=== PATIENT | female | born 1955 | race Caucasian/White ===

== ENCOUNTER → 2018-11-11 | Outpatient (CLI) | payer OTHER ==
[~2018-11-11] MED LIST: GLIMEPIRIDE2 MG PO; LEXAPRO10 MG PO; LOSARTAN POTASS25 MG PO; NEXIUM40 MG PO; OXYBUTYNIN CHLOR5 MG PO; SINGULAIR10 MG PO; SPIRONOLACTONE25 MG PO; VICTOZA 2-0.6 MG/0.1 SC; VYTORIN 10-401 EACH PO; WARFARIN SODIUM4 MG PO; Z.0.ECOTRIN325 MG PO; Z.0.PLAVIX75 MG PO; Z.0.PRADAXA150 MG PO; Z.0.RANEXA500 MG PO; Z.0.TOPROL XL100 MG PO; Z.0.TRAZODONE HCL100 PO; Z.0.VICTOZA 2-0.6 MG; Z.0.VYTORIN 10-401 E; Z.1.DIOVAN HCT 1601; Z.2.METFORMIN HCL500 PO
== END ==
LOC: MAMMO 13:03
PROVIDERS: ATTEND Internal Medicine
DX: Z12.31 Encounter for screening mammogram for malignant neoplasm of breast (principal)
CPT/HCPCS: 77067

== ENCOUNTER → 2020-07-27 | Outpatient (CLI) | payer OTHER | LOC: MAMMO 13:23 | PROVIDERS: ATTEND Internal Medicine | DX: Z12.31 Encounter for screening mammogram for malignant neoplasm of breast (principal) | CPT/HCPCS: 77067 ==

== ENCOUNTER 2025-01-06 18:31 | Inpatient (IN) | payer MEDICARE ==
[~2025-01-06] VITALS: Ht 162.6 cm; Wt 68.0 kg
[2025-01-06 19:04] LABS: BASOPHILS % 0.5 % (0.0-1.0); EOSINOPHILS # (AUTO) 0.3 (0.0-0.4); EOSINOPHILS % 3.3 % (0.0-6.0); HEMATOCRIT 43.3 % (34.2-44.1); LYMPHOCYTES # (AUTO) 1.6 (1.0-3.2); LYMPHOCYTES % 18.5 % (18.0-39.1); MEAN CORPUSCULAR HEMOGLOBIN 31.3 pg (28-32); MEAN CORPUSCULAR HGB CONC 32.3 g/dL (31-35); MEAN CORPUSCULAR VOLUME 96.9 fL (81-99); MONOCYTES # (AUTO) 0.6 (0.2-0.8); MONOCYTES % 6.3 % (4.4-11.3); NEUTROPHILS # (AUTO) 6.2 (2.1-6.9); NEUTROPHILS % 70.9 % (38.7-80.0); PLATELET COUNT 301 x10e3/uL (140-360); RED BLOOD COUNT 4.47 x10e6/uL (3.6-5.1); RED CELL DISTRIBUTION WIDTH 11.9 % (11.7-14.4)
[2025-01-06 19:08] VITALS: TEMP 98.5
[2025-01-06] MEDS: ACETAMINOPHEN 325 MG TAB PO STA (19:13)
[2025-01-06] MEDS: SODIUM CHLORIDE 0.9% 1000ML 1,000 ML IV STA (19:14)
[2025-01-06 19:21] LABS: CORONAVIRUS COVID-19 AG NEGATIVE (NEGATIVE); INFLUENZA A AG NEGATIVE (NEGATIVE); INFLUENZA B AG NEGATIVE (NEGATIVE)
[2025-01-06 19:28] LABS: ALBUMIN 3.9 g/dL (3.5-5.0); ANION GAP 18.2 mmol/L (8-16); BILIRUBIN,TOTAL 0.5 mg/dL (0.2-1.2); CALCIUM 9.4 mg/dL (8.4-10.2); CREATININE, SERUM 0.75 mg/dL (0.57-1.11); POTASSIUM 4.2 mmol/L (3.5-5.1); TOTAL PROTEIN 7.7 g/dL (6.5-8.1)
[2025-01-06 19:34] LABS: TROPONIN I 0.011 ng/mL (0-0.300)
[2025-01-06 20:22] LABS: AMPHETAMINES SCREEN,URINE NEGATIVE (NEGATIVE); OPIATES SCREEN,URINE NEGATIVE (NEGATIVE); PHENCYCLIDINE SCREEN,URINE NEGATIVE (NEGATIVE)
[2025-01-06 20:23] LABS: BENZODIAZEPINES SCREEN,URINE NEGATIVE (NEGATIVE); CANNABINOIDS SCREEN,URINE NEGATIVE (NEGATIVE); COCAINE SCREEN,URINE NEGATIVE (NEGATIVE); METHADONE SCREEN, URINE NEGATIVE (NEGATIVE)
[2025-01-06] MEDS ORDERED: IOPAMIDOL 370 MG/ML 100 ML INFUS..BTL INJ ONE (20:46)
[2025-01-06 21:00] VITALS: PULSE 68; RESP 25
[2025-01-06 21:44] LABS: COLOR,URINE YELLOW (YELLOW)
[2025-01-06 21:45] LABS: BILIRUBIN,URINE NEGATIVE (NEGATIVE); CLARITY,URINE CLEAR (CLEAR); GLUCOSE, URINE NEGATIVE (NEGATIVE); KETONES,URINE NEGATIVE (NEGATIVE); LEUKOCYTE ESTERASE ,URINE NEGATIVE (NEGATIVE); NITRITE,URINE NEGATIVE (NEGATIVE); PH,URINE 7 (5 - 7); PROTEIN,URINE DIPSTICK NEGATIVE (NEGATIVE); URINE UROBILINOGEN 0.2 mg/dL (0.2 - 1)
[2025-01-06 21:55] LABS: WBC,URINE (MAN) 0-5 /HPF (0-5)
[2025-01-06 21:56] LABS: BACTERIA,URINE MODERATE /HPF; EPITHELIAL CELLS,URINE FEW /LPF; RBC,URINE 0-5 /HPF (0-5)
[2025-01-06] MEDS ORDERED: DEXTROSE 50% SYRINGE 50 ML IV PRN (22:00)
[2025-01-06 22:20] VITALS: BP 146/68; PULSE 57; RESP 18; TEMP 97.7; O2SAT 97
[2025-01-06 22:30] VITALS: BP 146/68; PULSE 57; RESP 18; TEMP 97.7; O2SAT 97
[2025-01-06 23:17] VITALS: PULSE 58; RESP 16; O2SAT 97
[2025-01-06] MEDS: TRAZODONE HCL 50 MG TAB PO ONE (23:18)
[2025-01-07] VITALS (9 sets, daily range): BP systolic 103–157; BP diastolic 54–81; PULSE 66–73; RESP 16–18; TEMP 97.4–98.5; O2SAT 96–99
[2025-01-07] MEDS ORDERED: ELIQUIS5 MG PO (03:50)
[2025-01-07] MEDS ORDERED: REPAGLINIDE0.5 MG PO ×2 (03:50)
[2025-01-07] MEDS ORDERED: METOPROLOL TAR100 MG PO (03:50)
[2025-01-07] MEDS ORDERED: SIMVASTATIN40 MG PO (03:50)
[2025-01-07] MEDS ORDERED: LOSARTAN POTAS100 MG PO (03:50)
[2025-01-07] MEDS ORDERED: AMLODIPINE BESYL5 MG PO (03:50)
[2025-01-07] MEDS ORDERED: NOVOLIN R100 UNIT/1 SQ (03:50)
[2025-01-07] MEDS ORDERED: PREDNISOLONE ACE5 M1 OD (03:50)
[2025-01-07] MEDS ORDERED: ASPIRIN81 MG PO (03:50)
[2025-01-07] MEDS ORDERED: NOVOLIN N100 UNIT/1 SQ ×2 (03:50)
[2025-01-07 05:39] LABS: BASOPHILS % 0.5 % (0.0-1.0); EOSINOPHILS # (AUTO) 0.2 (0.0-0.4); EOSINOPHILS % 3.3 % (0.0-6.0); HEMATOCRIT 39.9 % (34.2-44.1); HEMOGLOBIN 12.8 g/dL (12.0-16.0); LYMPHOCYTES # (AUTO) 1.5 (1.0-3.2); LYMPHOCYTES % 22.7 % (18.0-39.1); MEAN CORPUSCULAR HEMOGLOBIN 31.6 pg (28-32); MEAN CORPUSCULAR HGB CONC 32.1 g/dL (31-35); MEAN CORPUSCULAR VOLUME 98.5 fL (81-99); MONOCYTES # (AUTO) 0.6 (0.2-0.8); MONOCYTES % 8.8 % (4.4-11.3); NEUTROPHILS # (AUTO) 4.2 (2.1-6.9); NEUTROPHILS % 64.2 % (38.7-80.0); PLATELET COUNT 266 x10e3/uL (140-360); RED BLOOD COUNT 4.05 x10e6/uL (3.6-5.1); RED CELL DISTRIBUTION WIDTH 12.1 % (11.7-14.4); WHITE BLOOD COUNT 6.57 x10e3/uL (4.8-10.8)
[2025-01-07 06:06] LABS: ALBUMIN 3.3 g/dL (3.5-5.0); ANION GAP 14.6 mmol/L (8-16); BILIRUBIN,TOTAL 0.5 mg/dL (0.2-1.2); CALCIUM 8.7 mg/dL (8.4-10.2); CREATININE, SERUM 0.74 mg/dL (0.57-1.11); POTASSIUM 3.6 mmol/L (3.5-5.1); TOTAL PROTEIN 6.6 g/dL (6.5-8.1)
[2025-01-07 06:35] LABS: TROPONIN I 0.012 ng/mL (0-0.300)
[2025-01-07] MEDS: INSULIN REGULAR, HUMAN 100 UNIT/1 ML SQ SCH (08:18)
[2025-01-07] MEDS: FUROSEMIDE INJ 10 MG/ML 2 ML VIAL IV ONE (11:44)
[2025-01-07 15:29] LABS: TROPONIN I 0.01 ng/mL (0-0.300)
[2025-01-07] MEDS: APIXABAN 5 MG TABLET PO SCH (16:55)
[2025-01-07] MEDS: METHYLPREDNISOLONE SOD SUCC 40 MG/ML VIAL 1ML IV SCH (17:56)
[2025-01-07] MEDS ORDERED: LABETALOL HCL 5 MG/ML 20ML VIAL IV PRN (19:00)
[2025-01-07] MEDS ORDERED: ONDANSETRON HCL INJ 2MG/ML 2ML 2 MG/ML VIAL IV PRN (19:00)
[2025-01-07] MEDS ORDERED: BISACODYL 10 MG SUPP PR PRN (19:00)
[2025-01-07] MEDS ORDERED: LACTULOSE SYRUP 20 GM/30 ML UDC PO PRN (19:00)
[2025-01-07] MEDS: TRAZODONE HCL 50 MG TAB PO SCH (21:29)
[2025-01-08] VITALS (11 sets, daily range): BP systolic 113–160; BP diastolic 60–86; PULSE 60–91; RESP 17–19; TEMP 97.4–98.2; O2SAT 96–100
[2025-01-08 05:20] LABS: BASOPHILS % 0.1 % (0.0-1.0); HEMATOCRIT 41.8 % (34.2-44.1); HEMOGLOBIN 13.5 g/dL (12.0-16.0); LYMPHOCYTES # (AUTO) 0.6 (1.0-3.2); LYMPHOCYTES % 8.7 % (18.0-39.1); MEAN CORPUSCULAR HEMOGLOBIN 31.8 pg (28-32); MEAN CORPUSCULAR HGB CONC 32.3 g/dL (31-35); MEAN CORPUSCULAR VOLUME 98.4 fL (81-99); MONOCYTES # (AUTO) 0.1 (0.2-0.8); MONOCYTES % 1.7 % (4.4-11.3); NEUTROPHILS # (AUTO) 6.5 (2.1-6.9); NEUTROPHILS % 89.1 % (38.7-80.0); PLATELET COUNT 265 x10e3/uL (140-360); RED BLOOD COUNT 4.25 x10e6/uL (3.6-5.1); RED CELL DISTRIBUTION WIDTH 11.8 % (11.7-14.4); WHITE BLOOD COUNT 7.26 x10e3/uL (4.8-10.8)
[2025-01-08 06:12] LABS: ANION GAP 14.6 mmol/L (8-16); CALCIUM 8.7 mg/dL (8.4-10.2); CHOL/HDL RATIO 2.4 (3.0-3.6); CREATININE, SERUM 0.76 mg/dL (0.57-1.11); MAGNESIUM 1.8 MG/DL (1.3-2.1); PHOSPHORUS 3.2 MG/DL (2.3-4.7); POTASSIUM 4.6 mmol/L (3.5-5.1)
[2025-01-08 06:22] LABS: FREE T4 (FREE THYROXINE) 1.05 ng/dL (0.8-1.8); THYROID STIMULATING HORMONE 0.283 uIU/mL (0.350-4.940)
[2025-01-08] MEDS: BUDESONIDE/FORMOTEROL 160/4.5MCG INHALER INH SCH (07:00)
[2025-01-08] MEDS: ALBUTEROL SULF 0.083% NEB SOLN 3 ML NEB NEB PRN (08:08)
[2025-01-08] MEDS: POLYETHYLENE GLYCOL 3350 17 GM PACK PO SCH (08:35)
[2025-01-08] MEDS: SIMVASTATIN 40 MG TAB PO SCH (08:35)
[2025-01-08] MEDS: DOCUSATE SODIUM 100 MG CAP PO SCH (08:35)
[2025-01-08] MEDS: FAMOTIDINE 20 MG TAB PO SCH (08:35)
[2025-01-08] MEDS: ACETAMINOPHEN 325 MG TAB PO PRN (08:42)
[2025-01-08] MEDS ORDERED: ONDANSETRON HCL 4 MG ORAL DISINTEGRATING TAB PO PRN (10:45)
[2025-01-08] MEDS: SENNA-S TABLET PO PRN (17:27)
[2025-01-08] MEDS: AMLODIPINE BESYLATE 5 MG TAB PO SCH (21:27)
[2025-01-08] MEDS: LOSARTAN POTASSIUM 100 MG TAB PO SCH (21:27)
[2025-01-08] MEDS: METOPROLOL TARTRATE 50 MG TAB PO SCH (21:28)
[2025-01-09] VITALS (12 sets, daily range): BP systolic 130–149; BP diastolic 66–87; PULSE 59–77; RESP 16–20; TEMP 97.6–98.6; O2SAT 93–100
[2025-01-09 06:40] LABS: BASOPHILS % 0.4 % (0.0-1.0); EOSINOPHILS # (AUTO) 0.2 (0.0-0.4); EOSINOPHILS % 3.3 % (0.0-6.0); LYMPHOCYTES # (AUTO) 1.7 (1.0-3.2); LYMPHOCYTES % 25.1 % (18.0-39.1); MEAN CORPUSCULAR HEMOGLOBIN 31.6 pg (28-32); MEAN CORPUSCULAR HGB CONC 32.4 g/dL (31-35); MEAN CORPUSCULAR VOLUME 97.4 fL (81-99); MONOCYTES # (AUTO) 0.5 (0.2-0.8); MONOCYTES % 7.3 % (4.4-11.3); NEUTROPHILS # (AUTO) 4.3 (2.1-6.9); NEUTROPHILS % 63.6 % (38.7-80.0); PLATELET COUNT 234 x10e3/uL (140-360); RED CELL DISTRIBUTION WIDTH 11.9 % (11.7-14.4); WHITE BLOOD COUNT 6.73 x10e3/uL (4.8-10.8)
[2025-01-09] MEDS ORDERED: REPAGLINIDE 0.5 MG TAB PO SCH ×2 (07:30→11:30)
[2025-01-09 07:34] LABS: ANION GAP 12.3 mmol/L (8-16); CALCIUM 8.7 mg/dL (8.4-10.2); CREATININE, SERUM 0.72 mg/dL (0.57-1.11); POTASSIUM 4.3 mmol/L (3.5-5.1)
[2025-01-09] MEDS: PREDNISONE 10 MG TAB PO SCH (08:17)
[2025-01-09] MEDS: REPAGLINIDE 1 MG TAB PO SCH ×2 (08:38→12:08)
[2025-01-09] MEDS: AZITHROMYCIN 250 MG TAB PO SCH (12:08)
[2025-01-10 02:33] VITALS: BP 132/59; PULSE 57; RESP 17; TEMP 98.3; O2SAT 100
[2025-01-10 06:30] LABS: BASOPHILS % 0.4 % (0.0-1.0); EOSINOPHILS # (AUTO) 0.2 (0.0-0.4); EOSINOPHILS % 2.2 % (0.0-6.0); HEMATOCRIT 38.3 % (34.2-44.1); HEMOGLOBIN 12.3 g/dL (12.0-16.0); LYMPHOCYTES # (AUTO) 1.8 (1.0-3.2); LYMPHOCYTES % 23.7 % (18.0-39.1); MEAN CORPUSCULAR HEMOGLOBIN 31.5 pg (28-32); MEAN CORPUSCULAR HGB CONC 32.1 g/dL (31-35); MONOCYTES # (AUTO) 0.6 (0.2-0.8); MONOCYTES % 7.6 % (4.4-11.3); NEUTROPHILS # (AUTO) 5.1 (2.1-6.9); NEUTROPHILS % 65.7 % (38.7-80.0); PLATELET COUNT 243 x10e3/uL (140-360); RED BLOOD COUNT 3.91 x10e6/uL (3.6-5.1); RED CELL DISTRIBUTION WIDTH 11.9 % (11.7-14.4); WHITE BLOOD COUNT 7.75 x10e3/uL (4.8-10.8)
[2025-01-10 06:55] LABS: ANION GAP 13.5 mmol/L (8-16); CALCIUM 9.1 mg/dL (8.4-10.2); CREATININE, SERUM 0.73 mg/dL (0.57-1.11); POTASSIUM 4.5 mmol/L (3.5-5.1)
[2025-01-10 07:13] VITALS: PULSE 58; RESP 20; O2SAT 96
[2025-01-10 07:30] VITALS: BP 132/63; PULSE 69; RESP 20; TEMP 98.2; O2SAT 95
[2025-01-10 08:00] VITALS: BP 132/63; PULSE 69; RESP 20; TEMP 98.2; O2SAT 95
[2025-01-10 09:00] VITALS: BP 132/63; PULSE 69; RESP 20; TEMP 98.2; O2SAT 95
[2025-01-10 12:10] VITALS: BP 134/61; PULSE 71; RESP 20; TEMP 97.9; O2SAT 95
[2025-01-10] MEDS ORDERED: PREDNISONE10 MG PO (15:52)
[2025-01-10] MEDS ORDERED: AUGMENTIN 500-1 EACH PO (15:52)
[2025-01-10] MEDS ORDERED: FAMOTIDINE20 MG PO (15:52)
[2025-01-10] MEDS ORDERED: AZITHROMYCIN250 MG PO (15:52)
[2025-01-10] MEDS ORDERED: SYMBICORT 16010.2 GM INH (15:52)
== END 2025-01-10 17:00 | disposition home or self-care (01) | DRG 190 ==
LOC: ER 18:51 → ERHOLD 21:23 → MED/SURG3 21:56
PROVIDERS: ADMIT Internal Medicine; ATTEND Internal Medicine
DX: J44.1 Chronic obstructive pulmonary disease with (acute) exacerbation (principal); I50.33 Acute on chronic diastolic (congestive) heart failure; J96.21 Acute and chronic respiratory failure with hypoxia; I11.0 Hypertensive heart disease with heart failure; Z99.81 Dependence on supplemental oxygen; Z66 Do not resuscitate; I25.10 Atherosclerotic heart disease of native coronary artery without angina pectoris; I48.0 Paroxysmal atrial fibrillation; E11.42 Type 2 diabetes mellitus with diabetic polyneuropathy; E78.5 Hyperlipidemia, unspecified; G47.00 Insomnia, unspecified; R33.9 Retention of urine, unspecified; K59.00 Constipation, unspecified; M54.9 Dorsalgia, unspecified; Z11.52 Encounter for screening for COVID-19; I69.998 Other sequelae following unspecified cerebrovascular disease; R20.0 Anesthesia of skin; H54.60 Unqualified visual loss, one eye, unspecified; Z79.4 Long term (current) use of insulin; Z79.01 Long term (current) use of anticoagulants; Z79.82 Long term (current) use of aspirin; Z79.84 Long term (current) use of oral hypoglycemic drugs; Z95.1 Presence of aortocoronary bypass graft; I25.2 Old myocardial infarction; Z95.5 Presence of coronary angioplasty implant and graft; Z90.710 Acquired absence of both cervix and uterus; Z88.2 Allergy status to sulfonamides; F17.210 Nicotine dependence, cigarettes, uncomplicated
CPT/HCPCS: 36415; 71260; 74177; 80048; 80053; 80061; 80307; 80320; 81001; 82550; 82948; 83036; 83605; 83690; 83735; 83880; 84100; 84439; 84443; 84484; 85025; 87040; 87086; 93005; 93306; 94640; 94664; 94799; 96372; 99284; J1940; J2543; J2919; J7030; J7050; J7512; Q9967